=== PATIENT | female | born 1990 | race Hispanic/Latino ===

== ENCOUNTER 2024-08-27 13:28 | Emergency (ER) | payer SELFPAY ==
[~2024-08-27] VITALS: Ht 162.6 cm; Wt 136.1 kg
--- NOTE | 2024-08-27 14:28 | EKG ---
[facility] Test Date: 2024-08-27 Test Time: 13:50:53 Pat Name: TALA LAM Department: ED Room: Gender: F [employer]: [facility] 1990 Requested By: DANA TORRES Order Number: [id number] Reading MD: Soco García Measurements Intervals [place] Rate: 76 P: 10 AR: 164 QRS: -28 QRSD: 99 T: 11 QT: 389 QTc: 438 Interpretive Statements Sinus rhythm No previous ECG available for comparison Electronically Signed On 08-28-2024 13:22:08 CDT by Soco García Please click the below link to view image of tracing.
[2024-08-27 14:38] LABS: BASOPHILS # (AUTO) 0.07 K/uL (0.00-0.20); BASOPHILS % (AUTO) 0.6 % (0.0-5.0); EOSINOPHILS # (AUTO) 0.24 K/uL (0.00-0.70); EOSINOPHILS % (AUTO) 2.1 % (0.0-8.0); HEMATOCRIT 42.6 % (36-48); IMMATURE GRANULOCYTE ABSOLUTE 0.04 K/uL (0-1); LYMPHOCYTES # (AUTO) 2.8 K/uL (1.0-4.8); LYMPHOCYTES % (AUTO) 24.8 % (21.0-51.0); MEAN CORPUSCULAR HEMOGLOBIN 30.8 pg (27.0-33.0); MEAN CORPUSCULAR HGB CONC 32.6 g/dL (32.0-36.0); MEAN CORPUSCULAR VOLUME 94.2 fL (79-99); MONOCYTES # (AUTO) 0.5 K/uL (0.1-1.0); MONOCYTES % (AUTO) 4.1 % (3.0-13.0); NEUTROPHILS # (AUTO) 7.7 K/uL (1.8-7.7); PLATELET COUNT (AUTO) 397 K/uL (130-400); RED BLOOD CELL COUNT(AUTO) 4.52 MIL/uL (4.00-5.50); RED CELL DISTRIBUTION WIDTH 12.9 % (11.0-15.5); WHITE BLOOD COUNT (AUTO) 11.3 K/uL (4.8-10.8)
[2024-08-27 14:45] LABS: CREATININE 0.7 mg/dL (0.5-1.0); POTASSIUM 4.1 mmol/L (3.5-5.1)
[2024-08-27 14:58] LABS: B-TYPE NATRIURETIC PEPTIDE 14 pg/mL (0-100)
--- NOTE | 2024-08-27 16:06 | ERN ---
General Chief Complaint: Chest Wall Pain Stated Complaint: CHEST PAIN Time Seen by MD: 13:36 History of Present Illness Initial Comments 33-year-old female, obese, presents for chest pains. She reports the last few days she has had pinpoint sharp chest pains in the left side of the chest. It waxes and wanes. Certain movements and deep respiration rate make it worse. She denies any other symptoms. Allergies: Coded Allergies: Sulfa (Sulfonamide Antibiotics) (Unverified Allergy, Unknown, 08/27/24) Past Medical History Past Medical History: No Pertinent History Past Surgical History: Unknown Female( History) : 1 Para: 1 Aborts: 0 ROS Dictation CONSTITUTIONAL: No chills, no fever, no weakness, no diaphoresis, no malaise. HEAD/FACE: No signs of trauma. EENT: No eye pain, no blurred vision, no tearing, no double vision, no ear pain, no ear discharge, no nose pain, no nasal congestion, no throat pain, no throat swelling, no mouth pain. RESPIRATORY: No cough, no orthopnea, no SOB, no stridor, no wheezing. CARDIOVASCULAR: Chest pain GASTROINTESTINAL/ABDOMINAL: No abdominal pain, no constipation, no diarrhea, no nausea, no vomiting. GENITOURINARY: No abnormal discharge, no dysuria, no frequent urination, no hematuria. No complaints of pain in the genitals. MUSCULOSKELETAL: No back pain, no gout, no joint pain, no joint swelling, no muscle pain, no muscle stiffness, no neck pain. INTEGUMENTARY: No change in color, no change in hair/nails, no dryness, no lesion, no lumps, no rash. NEUROLOGICAL/PSYCH: No anxiety, not depressed, no emotional problem, no headache, no numbness, no pre-existing deficit, no history of seizures, no tremors, no weakness. HEMATOLOGIC/LYMPHATIC: Not anemic, no history of blood clots, no apparent bleeding, no bruising, glands not swollen. All Systems Negative, Except as Noted. Physical Exam Physical Exam Dictation VITAL SIGNS: Reviewed. GENERAL APPEARANCE: Alert, oriented x3, no acute distress, obese. HEAD AND FACE: Non-traumatic. EYES: PERRL, pink conjunctivas, eyelid no trauma, anterior chamber clear. EARS: Pinnas intact and no signs of trauma or erythema. Ear canals clear and no discharge. TMs no erythema. NOSE: No discharge, no bleeding. OROPHARYNX: Mouth normal, teeth no caries, tongue pink. Pharynx clear, no erythema. Tonsils no exudates, no abscesses noted. Mucous membrane moist. NECK: Supple, non-tender, no thyromegaly, no masses, no JVD, no bruits. BREAST: Deferred. CHEST: No tenderness, no crepitus, no paradoxical movement, no retractions. LUNGS: Clear, well-ventilated, symmetric, no rales, no wheezing, no rhonchi, no stridor, good breath sounds bilaterally. HEART: Regular rate, regular rhythm, no murmur, no gallops. VASCULAR: No peripheral edema. ABDOMEN: Soft, positive bowel sounds, nondistended, no guarding, nontender, no rebound, no masses no hepatomegaly, no splenomegaly, no Briseno's sign, no hernias. RECTAL: Deferred. GENITAL: Deferred. NEUROLOGICAL: Normal speech, gross motor function intact, gross sensory function intact. MUSCULOSKELETAL: Neck nontender, full range of motion, back nontender, full range of motion. EXTREMITIES: Nontender, full range of motion. SKIN: Color pink, dry, no turgor, no rash, no lacerations, no abrasions, no contusions. LYMPHATICS: Deferred. Results Laboratory and Microbiology Lab and Micro Result Laboratory Tests Test 08/27/24 14:19 White Blood Count 11.3 K/uL (4.8-10.8) H Red Blood Count 4.52 MIL/uL (4.00-5.50) Hemoglobin 13.9 g/dL (12.0-16.0) Hematocrit 42.6 % (36-48) Mean Corpuscular Volume 94.2 fL (79-99) Mean Corpuscular Hemoglobin 30.8 pg (27.0-33.0) Mean Corpuscular Hemoglobin Concent 32.6 g/dL (32.0-36.0) Red Cell Distribution Width 12.9 % (11.0-15.5) Platelet Count 397 K/uL (130-400) Mean Platelet Volume 9.1 fL (7.5-10.5) Immature Granulocyte % (Auto) 0.4 % (0-1) Neutrophils (%) (Auto) 68.0 % (40.0-77.0) Lymphocytes (%) (Auto) 24.8 % (21.0-51.0) Monocytes (%) (Auto) 4.1 % (3.0-13.0) Eosinophils (%) (Auto) 2.1 % (0.0-8.0) Basophils (%) (Auto) 0.6 % (0.0-5.0) Neutrophils # (Auto) 7.7 K/uL (1.8-7.7) Lymphocytes # (Auto) 2.8 K/uL (1.0-4.8) Monocytes # (Auto) 0.5 K/uL (0.1-1.0) Eosinophils # (Auto) 0.24 K/uL (0.00-0.70) Basophils # (Auto) 0.07 K/uL (0.00-0.20) Absolute Immature Granulocyte (auto 0.04 K/uL (0-1) Nucleated Red Blood Cells 0.0 % (0.0-0.19) Sodium Level 139 mmol/L (136-145) Potassium Level 4.1 mmol/L (3.5-5.1) Chloride Level 105 mmol/L (101-111) Carbon Dioxide Level 25 mmol/L (21-32) Blood Urea Nitrogen 15 mg/dL (7-18) Creatinine 0.7 mg/dL (0.5-1.0) Glomerular Filtration Rate Calc 118 mL/min (>90) Random Glucose 95 mg/dL (70-105) Total Calcium 8.5 mg/dL (8.5-10.1) Troponin I High Sensitivity 5 ng/L (4-50) B-Type Natriuretic Peptide 14 pg/mL (0-100) MDM CC: Chest pain Historian: Patient Comorbidities: Obesity here for limitations by social determinants of health: None Differential diagnosis: ACS come be, musculoskeletal type pain, other. Vital signs are stable Clinical exam is unremarkable EKG: Sinus rhythm, rate 76 normal axis good R-wave progression intervals are stable. No STEMI. Independently interpreted by me. Chest x-ray. Sees independently interpreted by me): No cardiomegaly pleural effusions or focal infiltrates. Labs (independently interpreted by me): Normal CBC normal BNP normal BNP normal troponin Patient has a heart score of 0. Low risk perc/PERC negative No signs of TID or major abnormalities. At this point in time patient is safe for discharge. Likely noncardiac chest pain. ED Course Orders Procedure Category Date Status Time 12 Lead Ekg Tracing- EKG 08/27/24 Complete Technical 13:51 Cbc With Differential LAB 08/27/24 Complete 14:03 B-Type Natriuretic LAB 08/27/24 Complete Peptide 14:03 Chest 1vw RAD 08/27/24 Taken 14:03 ,Urine Test LAB 08/27/24 Logged 14:03 Troponin I High LAB 08/27/24 Complete Sensitivity 14:03 Basic Metabolic Panel LAB 08/27/24 Complete 14:03 Vital Signs Date Time Temp Pulse Resp B/P (MAP) Pulse Ox O2 Delivery O2 Flow Rate FiO2 08/27/24 13:41 98.2 85 16 169/102 97 Room Air 0 08/27/24 13:41 98.2 85 16 169/102 98 Room Air* 0 21 DX & DISP Disposition: Discharge Departure Impression: Primary Impression: Chest pain, non-cardiac Condition: Stable Additional Instructions: You are very low risk for significant cardiac disease at this time. You EKGs normal. Your chest x-ray is normal. Your blood work (CBC, BMP, troponin) is unremarkable. I recommend he follow up with the primary doctor if you continue with symptoms. Please return to the emergency department as needed. Referrals: SELF,REFERRAL (PCP) DANA TORRES DO Aug 27, 2024 16:06
[2024-08-27 16:53] VITALS: BP 152/90; PULSE 80; RESP 16; TEMP 98.3; O2SAT 98
--- NOTE | 2024-08-27 17:02 | HMCIMG ---
CHEST 1VW HISTORY: Chest pain COMPARISON: None FINDINGS: A frontal projection of the chest was obtained. No acute pulmonary infiltrates is seen. The heart is normal in size. Prominent interstitial markings are seen. No evidence of aortic calcification is seen. IMPRESSION: 1. No acute pulmonary infiltrate is seen.
== END 2024-08-27 17:37 | disposition home or self-care (01) ==
LOC: EDH 13:28
DX: R07.89 Other chest pain (principal); E66.9 Obesity, unspecified; Z88.2 Allergy status to sulfonamides
CPT/HCPCS: 36415; 71045; 80048; 83880; 84484; 85025; 93005; 99285